=== PATIENT | female | born 2000 | race Caucasian/White ===

== ENCOUNTER 2020-08-17 16:44 | Emergency (ER) | payer OTHER ==
[~2020-08-17] VITALS: Ht 157.5 cm; Wt 72.6 kg
--- NOTE | 2020-08-17 16:49 | NUR ---
Patient to ER bed 08 to gown for evaluation. Side rails up.
[2020-08-17 16:52] VITALS: BP_SYST 138
--- NOTE | 2020-08-17 16:55 | NUR ---
PT CAME TO ER FOR VAGINAL ITCHING X 1 MONTH AND HAS ALSO BEEN EXPERIENCING BURNING WITH URINATION. SHE SAYS SHE HAS BEEN TO AN OBGYN AND TO THE URGENT CARE 3 TIMES IN THE LAST MONTH FOR THIS PROBLEM WITHOUT RESOLVE. SHE WAS TREATED FOR A YEAST INFECTION AT THE BEGINNING X2 AND HAS NOT BEEN RESOLVED WITH HER VAGINAL ITCHING. SHE IS CURRENTLY ON HER MENSTRAL CYCLE AND HAS 1 SEXUAL PARTNER. SHE IS AAOX4, V/S STABLE
--- NOTE | 2020-08-17 17:00 | NUR ---
ER DR. ESPINOSA AT THE BEDSIDE FOR EXAMINIATION
[2020-08-17 17:24] LABS: BILIRUBIN,URINE NEGATIVE (NEGATIVE); BLOOD, URINE 2+ (NEGATIVE); CLARITY/URINE CLEAR (CLEAR); COLOR,URINE YELLOW (YELLOW); GLUCOSE,URINE NEGATIVE (NEGATIVE); KETONES,URINE NEGATIVE (NEGATIVE); LEUKOCYTE ESTERASE ,URINE NEGATIVE (NEGATIVE); NITRITE, URINE NEGATIVE (NEGATIVE); PROTEIN URINE NEGATIVE (NEGATIVE); UROBILINOGEN,URINE 0.2 (0.2-1.0)
--- NOTE | 2020-08-17 17:25 | NUR ---
ER DR. 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 SWABS DONE FOR GC, GRAM STAIN AND WET MOUNT. PT TOLERATED WELL
[2020-08-17 17:57] LABS: BACTERIA,URINE FEW /HPF (None Seen); RBC,URINE 0-3 /HPF (0-3); WBC,URINE NONE SEEN /HPF (0-3)
[2020-08-17 18:18] VITALS: BP_SYST 138
--- NOTE | 2020-08-17 18:18 | NUR ---
Patient given written and verbal discharge instructions and verbalizes understanding. ER MD discussed with patient the results and treatment provided. Patient in stable condition. ID arm band removed. Patient educated on pain management and to follow up with PMD. Pain Scale 0/10. Opportunity for questions provided and answered. Medication side effect fact sheet provided.
== END 2020-08-17 18:18 | disposition home or self-care (01) ==
LOC: SED 16:44
DX: L29.2 Pruritus vulvae (principal)
CPT/HCPCS: 81000-TC; 81025; 87081-TC; 87086; 87110; 87205-TC; 87210-TC; 87491; 87591; 99283